=== PATIENT | male | born 1975 | race Caucasian/White ===

== ENCOUNTER 2017-10-13 08:44 | Day surgery (SDC) | payer BC ==
[~2017-10-13 08:44] MED LIST: Lactated Ringers 1,000 ML IV SCH; Lidocaine 1%/Sod Bicarbonate in NS 8.4% 1 ML Syringe IDERM PRN; Sodium Chloride 0.9% 10 ML Syringe FLUSH PRN
[2017-10-13] MEDS ORDERED: Propofol 200 MG/20 ML SDV ONE (09:15)
[2017-10-13] MEDS ORDERED: fentaNYL 100 MCG/2 ML SDV ONE (09:15)
[2017-10-13] MEDS ORDERED: Lidocaine 1% 4 ML ONE (09:15)
[2017-10-13] MEDS ORDERED: Ondansetron 4 MG/2 ML SDV ONE (09:15)
--- NOTE | 2017-10-13 10:00 | PCM.PREANE ---
Preanesthetic Assessment - Procedure Proposed Procedure: Colonoscopy - Anesthesia/Transfusion/Family Hx Anesthesia History: Prior Anesthesia Reaction Type of Anesthesia Reaction: Excessive Nausea/Vomiting (One time he was nauseated. Other times he was fine.) Family History of Anesthesia Reaction: No Transfusion History: No Prior Transfusion(s) - Review of Systems General: No Symptoms Pulmonary: No Symptoms Cardiovascular: No Symptoms, Other (Denies any cardiac symptoms currently. Had a work up a couple years ago that was negative. It was found to be reltated to a DVT in his arm. ) Gastrointestinal: No Symptoms Neurological: No Symptoms Other: Reports: None - Physical Assessment NPO Status Date: 10/12/17 NPO Status Time: 20:00 O2 Sat by Pulse Oximetry: 96 Respiratory Rate: 16 Vital Signs: Last Vital Signs Temp 36.9 C 10/13/17 09:10 Pulse 79 10/13/17 09:10 Resp 16 10/13/17 09:10 BP 120/72 10/13/17 09:10 Pulse Ox 96 10/13/17 09:10 Height: 1.73 m Weight: 81.193 kg ASA Class: 2 Mental Status: Alert & Oriented x3 Airway Class: Mallampati = 2 Dentition: Reports: Normal Dentition Thyro-Mental Finger Breadths: 3 Mouth Opening Finger Breadths: 2 ROM/Head Extension: Full Lungs: Clear to Auscultation, Normal Respiratory Effort Cardiovascular: Regular Rate, Regular Rhythm - Allergies Allergies/Adverse Reactions: Allergies Allergy/AdvReac Type Severity Reaction Status Date / Time No Known Allergies Allergy Verified 10/12/17 15:39 - Acknowledgements Anesthesia Type Planned: MAC Pt an Appropriate Candidate for the Planned Anesthesia: Yes Alternatives and Risks of Anesthesia Discussed w Pt/Guardian: Yes Pt/Guardian Understands and Agrees with Anesthesia Plan: Yes PreAnesthesia Questionnaire HEENT History: Reports: Allergic Rhinitis, Impaired Vision Cardiovascular History: Reports: Afib, Arrhythmia, High Cholesterol, Other (See Below) Other Cardiovascular History: had stress test done about 1 1/2 yrs ago and passed it fine;was done here at hospital; pt has seen Dr. Cosme for atrial fib and has been wearing a mointor for about 2 weeks; pt states if there is enough episodes that they would consider abblation. Respiratory History: Reports: Asthma (Exercise induced.) Gastrointestinal History: Reports: Chronic Diarrhea, GERD, Hemorrhoids Genitourinary History: Reports: None [employer] History: Reports: None Musculoskeletal History: Reports: Back Pain, Chronic, Other (See Below) Other Musculoskeletal History: shoulder pain Neurological History: Reports: Vertigo Psychiatric History: Reports: None Endocrine/Metabolic History: Reports: None Hematologic History: Reports: None Immunologic History: Reports: None Oncologic (Cancer) History: Reports: None Dermatologic History: Reports: Other (See Below) Other Dermatologic History: lipoma, cellulitis - Past Surgical History Cardiovascular Surgical History: Reports: None, Other (See Below) Respiratory Surgical History: Reports: None GI Surgical History: Reports: Appendectomy, Colonoscopy Female Surgical History: Reports: None Male Surgical History: Reports: None Endocrine Surgical History: Reports: None Neurological Surgical History: Reports: None Musculoskeletal Surgical History: Reports: Other (See Below) Other Musculoskeletal Surgeries/Procedures:: left knee surgery with hardware Oncologic Surgical History: Reports: None Dermatological Surgical History: Reports: None - SUBSTANCE USE Smoking Status *Q: Current Every Day Smoker Tobacco Use Within Last Twelve Months: Smokeless Tobacco, Snuff/Dip Recreational Drug Use History: No - HOME MEDS Home Medications: Home Meds Aspirin [Halfprin] 81 mg PO DAILY 10/12/17 [History] Cinnamon Bark [Cinnamon] 500 mg PO DAILY 10/12/17 [History] Fish Oil/Dorena-3 Fatty Acids [Fish Oil 1,000 MG] 1 gm PO DAILY 10/12/17 [History ] Fluticasone Propionate [Flonase] 1 spray NASBOTH DAILY 10/12/17 [History] Latanoprost 1 drop EYEBOTH DAILY 10/12/17 [History] Loratadine/Pseudoephedrine [Sm Lorata-Dine D 24Hr Tablet] 1 tab PO DAILY [History] Multivitamin [Daily Jacob] 1 tab PO DAILY 10/12/17 [History] - CURRENT (IN HOUSE) MEDS Current Meds: Current Medications Lactated Ringer's (Ringers, Lactated) 1,000 mls @ 125 mls/hr IV ASDIRECTED IMAN Stop: 10/13/17 23:00 Last Admin: 10/13/17 09:20 Dose: 125 mls/hr Lidocaine/Sodium Bicarbonate (Buffered Lidocaine 1% In Ns 8.4%) 0.25 ml IDERM ONETIME PRN PRN Reason: Prior to IV Start Stop: 10/13/17 18:00 Last Admin: 10/13/17 09:19 Dose: 0.25 ml Sodium Chloride (Saline Flush) 10 ml FLUSH ASDIRECTED PRN PRN Reason: Keep Vein Open Stop: 10/13/17 18:00 Discontinued Medications Fentanyl (Sublimaze) Confirm Administered Dose 100 mcg .ROUTE .STK-MED ONE Stop: 10/13/17 09:16 Lidocaine HCl (Xylocaine-Mpf 1%) Confirm Administered Dose 4 mls @ as directed .ROUTE .STK-MED ONE Stop: 10/13/17 09:16 Ondansetron HCl (Zofran) Confirm Administered Dose 4 mg .ROUTE .STK-MED ONE Stop: 10/13/17 09:16 Propofol (Diprivan 20 Ml) Confirm Administered Dose 400 mg .ROUTE .STK-MED ONE Stop: 10/13/17 09:16
[2017-10-13] MEDS ORDERED: Midazolam 1 MG/ML 2 ML SDV ONE (10:50)
--- NOTE | 2017-10-13 10:59 | PCM.OPNOTE ---
- General Post-Op/Procedure Note Date of Surgery/Procedure: 10/13/17 Operative Procedure(s): Colonoscopy with ileal right colon transverse descending and random rectal biopsies Findings: Normal colonoscopy Pre Op Diagnosis: Chronic diarrhea Post-Op Diagnosis: Same Anesthesia Technique: MAC, Moderate Sedation Primary Surgeon: Pedro Shepherd Pathology: Ileal right colon transverse descending and rectal biopsies EBL in mLs: 0 Complications: None Condition: Good Free Text/Narrative:: After adequate IV sedation and analgesia was obtained with monitoring the patient was placed on his left side. Perianal inspection and digital rectal examination were normal. A lubricated colonoscope was inserted into the rectum and advanced to the cecum without difficulty. The bowel preparation was excellent. I intubated the terminal ileum which was grossly normal. 2 random biopsies were taken given his history. I also randomly biopsied the right colon transverse colon and descending colons despite them being endoscopically normal with no mass lesions or inflammatory changes seen. The sigmoid was unremarkable as well. I took 2 random biopsies in the rectum for histologic review given his history of chronic diarrhea. Photographs were taken for the patient and for the medical record. Air was removed as I finished the procedure which he tolerated well.
[2017-10-13 11:32] VITALS: BP 93/48
--- NOTE | 2017-10-13 11:38 | PCM48HPAN ---
Post Anesthesia Note - EVALUATION WITHIN 48HRS OF ANESTHETIC Vital Signs in Normal Range: Yes Patient Participated in Evaluation: Yes Respiratory Function Stable: Yes Airway Patent: Yes Cardiovascular Function Stable: Yes Hydration Status Stable: Yes Pain Control Satisfactory: Yes Nausea and Vomiting Control Satisfactory: Yes Mental Status Recovered: Yes
== END 2017-10-13 11:45 | disposition home or self-care (01) ==
LOC: JD.SDS 08:44
PROVIDERS: ATTEND Surgery
DX: K52.9 Noninfective gastroenteritis and colitis, unspecified (principal); J45.909 Unspecified asthma, uncomplicated; F17.220 Nicotine dependence, chewing tobacco, uncomplicated; E78.5 Hyperlipidemia, unspecified; K21.9 Gastro-esophageal reflux disease without esophagitis; I47.1 Supraventricular tachycardia; Z79.82 Long term (current) use of aspirin; Z79.51 Long term (current) use of inhaled steroids; Z79.899 Other long term (current) drug therapy
CPT/HCPCS: 45380; J2001; J2250; J2405; J3010; J7120; J2704

== ENCOUNTER 2021-09-29 07:33 | Emergency (ER) | payer BC ==
[2021-09-29 07:44] VITALS: BP 142/92; PULSE 74
[2021-09-29] MEDS ORDERED: Ketorolac 30 MG/ML SDV IM ONE (08:07)
[2021-09-29] MEDS ORDERED: Cyclobenzaprine 10 MG Tab PO ONE (08:07)
== END 2021-09-29 09:00 | disposition home or self-care (01) ==
LOC: JD.ED 07:33
DX: M54.16 Radiculopathy, lumbar region (principal); I48.91 Unspecified atrial fibrillation; E78.00 Pure hypercholesterolemia, unspecified; K21.9 Gastro-esophageal reflux disease without esophagitis; Z79.82 Long term (current) use of aspirin
CPT/HCPCS: 96372; 99283; A9270; J1885